=== PATIENT | male | born 1970 | race Caucasian/White ===

== ENCOUNTER 2020-11-10 10:00 | Emergency (ER) | payer OTHER, SELFPAY ==
--- NOTE | ~2020-11-10 | XR_ITS ---
XR thoracic spine 3V DATE: 11/10/2020 10:52 INDICATION: Patient fell backwards on November 08, 2020. Thoracic back and left rib pain. TECHNIQUE: AP, lateral, swimmer views COMPARISON: None FINDINGS: No fracture or dislocation or bone destruction. The thoracic pedicles are intact. No parasp inal soft tissue thickening. IMPRESSION: No significant abnormality Reviewed, dictated and finalized at location B. IMPRESSION: No significant abnormality
--- NOTE | ~2020-11-10 | XR_ITS ---
XR_[id number] DATE: 11/10/2020 10:53 INDICATION: Patient fell on 11/08/2020. Left posterior rib pain. TECHNIQUE: PA chest. 3 views of the left ribs. COMPARISON: None FINDINGS: Normal heart size. No hilar or mediastinal enlargement. The lungs are clear of infiltrate o r consolidation. No pleural effusion or pulmonary vascular congestion or pneumothorax. No left rib fracture or bone destruction is evident. IMPRESSION: Negative Reviewed, dictated and finalized at Location A. Reviewed, dictated and finalized at location B. IMPRESSION: Negative
[2020-11-10 10:08] VITALS: PULSE 98; RESP 20; TEMP 36.8; O2SAT 100
[2020-11-10 10:12] VITALS: BP 172/98
--- NOTE | 2020-11-10 10:16 | ED.BACK ---
HPI - Back Pain/Injury General Chief Complaint: Back Pain/Injury Stated Complaint: Fell and now have Back pain Time Seen by Provider: 11/10/20 10:16 Source: patient, RN notes reviewed and old records reviewed Mode of arrival: ambulatory Limitations: no limitations History of Present Illness HPI Narrative: 49 year old male who presents to [facility] care with complaints of left lateral thoracic back pain after experiencing a fall on Tuesday. Patient states that he was running to get to custodial from rain when he slipped and fell flat on his back. He states that he has sharp pain to his left lateral thoracic back pain with any movement, with coughing, or sneezing and when he takes a deep breath or laughs. Patient states that he has been taking aspirin for his symptoms with minimal relief, Patient states that pain is sharp and throbbing at times with movement. Blood pressure reading 172/98 manually in right arm. MD elicited complaint: back pain and fall Pertinent past history: recent trauma Onset (ago): day(s) (2) Timing: constant Severity: severe Pain scale (0-10): 10 Similar Symptoms Previously: No Quality: sharp and spasming Location: thoracic spine (lateral left area) Radiation: none Related Data Allergies Allergy/AdvReac Type Severity Reaction Status Date / Time Penicillins Allergy Unknown Unknown Verified 11/10/20 10:18 Review of Systems Review of Systems: Narrative: CONSTITUTIONAL: Denies fever, chills, or sweats. EYES: Denies visual changes, redness, or discharge. ENT: Denies rhinorrhea, congestion, sore throat, or otalgia. CARDIOVASCULAR: Denies chest pain, palpitations, or edema. RESPIRATORY: Denies cough or dyspnea. GASTROINTESTINAL: Denies abdominal pain, nausea, vomiting, or diarrhea. GENITOURINARY: Denies dysuria or hematuria. SKIN: Denies rash or itching. MUSCULOSKELETAL: Positive for left lateral thoracic region back pain, joint pain, or myalgia. NEUROLOGIC: Denies headache, numbness, or weakness. PSYCHIATRIC: Denies anxiety or depression. All systems reviewed & are unremarkable except as noted in HPI and below PMFSH Surgical History Surgical History (Updated 11/10/20 @ 11:23 by Alexandria Lee NP) History of arthroplasty of right shoulder Labrum repair History of kidney surgery as child Family History Family History Father Family history of alcoholism Social History Social History Smoking status: Current every day smoker Second hand tobacco smoke exposure: Yes Alcohol intake: never Comments At time of signature, agree with nursing past medical, surgical, social and family history. There is no relevant family history pertinent to the presenting complaint Exam Narrative: Exam Narrative: GENERAL: Well-appearing, well-nourished, and in no acute distress. HEAD: Normocephalic, atraumatic. EYES: PERRLA and EOMI. ENT: Nares clear, no rhinorrhea or epistaxis. Mucous membranes moist.TM's normal with good light reflex, throat pink with no lesions or exudates NECK: Supple. no lymphadenopathy CHEST: Clear to auscultation. No respiratory distress.SAO2 100% on room air, pain with deep inspiration and cough or sneeze HEART: Regular rate and rhythm. No murmur heard. Normal peripheral pulses. ABDOMEN: Soft, nontender, nondistended, normal active bowel sounds. EXTREMITIES: Normal range of motion. No edema. Pain to left lateral thoracic back, denies any radiation of pain to his legs, increase pain with some movements, deep breathing,coughing, sneezing. No difficulty with bowel or bladder function SKIN: Warm, dry, no rash. NEURO: No focal deficits. Alert and oriented x3. Course Vital Signs Vital signs: Vital Signs Temperature 36.8 C 11/10/20 10:08 Pulse Rate 98 11/10/20 10:08 Respiratory Rate 20 11/10/20 10:08 Pulse Oximetry 100 11/10/20 10:08 Temperature 36.8 C 11/10/20
[2020-11-10 10:19] VITALS: BP 172/126; PULSE 98; RESP 20; TEMP 36.8; O2SAT 100
--- NOTE | 2020-11-19 10:06 | PC.NURSE ---
11/19/2020--1007-- PT SEEN ON 11/10/2020. THE BP REPORTED 172/126 WAS INCORRECT. THE CORRECT BP WAS TAKEN MANUALLY AND WAS 172/98.
== END 2020-11-10 11:18 | disposition home or self-care (01) ==
PROVIDERS: Emergency Provider Registered Nurse
DX: M54.6 Pain in thoracic spine (principal); F17.200 Nicotine dependence, unspecified, uncomplicated
CPT/HCPCS: 71101; 72072; 99204; 99213; G0463